=== PATIENT | female | born 1985 | race Two or more races ===

== ENCOUNTER 2017-10-10 09:03 | Emergency (ER) | payer OTHER ==
[2017-10-10 09:11] VITALS: BMI 25.8
[2017-10-10] MEDS ORDERED: METOCLOPRAMIDE HCL INJECTION 10 MG/2 ML VIAL IVPB ONE (09:17)
[2017-10-10] MEDS ORDERED: ACETAMINOPHEN 1000 MG/100 ML VIAL (NON FORMULARY) IVPB ONE (09:17)
[2017-10-10] MEDS ORDERED: SODIUM CHLORIDE 1,000 ML IV STA (09:35)
[2017-10-10] MEDS ORDERED: METOCLOPRAMIDE HCL INJECTION 10 MG/2 ML VIAL ONE (09:45)
--- NOTE | 2017-10-10 10:07 | PDOC ---
History of Present Illness - General Chief Complaint: Headache Stated Complaint: HEADACHE/20 WKS Time Seen by Provider: 10/10/17 09:16 History Source: Patient Exam Limitations: No Limitations - History of Present Illness Initial Comments: 10/10/17 10:07 32-year-old female presents to the ED with complaints of frontal headache and retro-orbital pressure since yesterday unrelieved with Tylenol 650 with last dose taken at 11 PM yesterday evening. Patient states has had headaches like this in the past with no change in symptoms but since she is currently 24 weeks she no she only can take Tylenol with moment does not relieve her headaches like Motrin does. Patient states also complaining of mild nausea without vomiting. Patient denies abdominal pain, visual changes, headache, vaginal discharge, vaginal bleeding, urinary complaints, fever, chills, dizziness, or weakness. Patient states is going well with no concerns for high-risk . Timing/Duration: reports: 24 hours Severity: Yes: moderate Associated Symptoms: reports: nausea/vomiting. denies: vision changes, weakness Past History - Travel Traveled outside of the country in the last 30 days: No - Past Medical History Allergies/Adverse Reactions: Allergies Allergy/AdvReac Type Severity Reaction Status Date / Time No Known Drug Allergies Allergy Verified 01/07/16 15:15 Penicillins Allergy Verified 10/10/17 09:07 SPICY FOOD Allergy Intermediate Rash Uncoded 01/07/16 15:16 Home Medications: Ambulatory Orders NK [No Known Home Medication] 10/10/17 Anemia: No Asthma: No Cancer: No Cardiac Disorders: No CVA: No COPD: No CHF: No Dementia: No Diabetes: No GI Disorders: No Disorders: No HTN: No Hypercholesterolemia: No Liver Disease: No Seizures: No Thyroid Disease: Yes (hypothyroid on synthroid) - Reproductive History Is Patient Now?: Yes - Immunization History Immunization Up to Date: Yes - Suicide/Smoking/Psychosocial Hx Smoking History: Never smoked Have you smoked in the past 12 months: No Information on smoking cessation initiated: No Hx Alcohol Use: No Drug/Substance Use Hx: No Substance Use Type: None Hx Substance Use Treatment: No Review of Systems - Review of Systems Able to Perform ROS?: Yes Constitutional: No: Symptoms Reported HEENTM: No: Symptoms Reported Respiratory: No: Symptoms reported Cardiac (ROS): No: Symptoms Reported ABD/GI: Yes: Nausea : No: Symptoms Reported Musculoskeletal: No: Symptoms Reported Integumentary: No: Symptoms Reported Neurological: Yes: Headache. No: Weakness, Dizziness *Physical Exam - Vital Signs Last Vital Signs Temp Pulse Resp BP Pulse Ox 98.3 F 80 17 104/55 99 10/10/17 09:07 10/10/17 09:07 10/10/17 09:07 10/10/17 09:07 10/10/17 09:07 - Physical Exam General Appearance: Yes: Nourished, Appropriately Dressed. No: Apparent Distress HEENT: positive: EOMI, MARILYN, TMs Normal, Pharynx Normal. negative: Pale Conjunctivae Neck: positive: Normal Thyroid, Supple Respiratory/Chest: positive: Lungs Clear, Normal Breath Sounds. negative: Respiratory Distress, Accessory Muscle Use Cardiovascular: positive: Regular Rhythm, Regular Rate. negative: Murmur Gastrointestinal/Abdominal: positive: Other (gravid abdomen) Extremity: positive: Normal Capillary Refill. negative: Pedal Edema Integumentary: positive: Normal Color, Warm, Moist Neurologic: positive: Motor Strength 5/5 (ambulatory) ED Treatment Course - LABORATORY CBC & Chemistry Diagram: 10/10/17 09:25 10/10/17 09:25 Medical Decision Making - Medical Decision Making 10/10/17 10:10 32-year-old female 24 weeks with frontal/retro-orbital pressure since yesterday associated with nausea. Patient with history of headaches normally relieved with Motrin but unable to take secondary to . Patient has no other complaints at this time. Vital signs stable. Patient's COUNCILMAN is Dr. Kohler. Plan is to hydrate, check urinalysis basic labs including CBC order IV fluids, IV Reglan and IV Tylenol. 10/10/17 12:27 Laboratory Tests 10/10/17 10/10/17 10/10/17 09:25 09:25 09:25 WBC 7.4 Hgb 11.6 D Hct 35.3 D Plt Count 229 Neutrophils % 71.4 Anion Gap 5 L Creatinine 0.5 L Random Glucose 72 L Calcium 8.2 L Albumin 2.8 L Urine Ketones Negative Urine Blood 1+ H Urine Nitrite Negative Urine Urobilinogen Negative Ur Leukocyte Esterase Trace Urine RBC (Auto) <1 Patient states feeling much better and requesting to be discharged home. Patient will eat lunch secondary to glucose of 72 to alleviate hypoglycemia. Patient be discharged home with supportive care instructions. Patient states has Tylenol home. Patient recommended to rest eats small frequent meals and stay well-hydrated today. Patient has no abdominal complaints and states has felt the baby move during her ER stay. *DC/Admit/Observation/Transfer Diagnosis at time of Disposition: Head ache - Discharge Dispostion Disposition: HOME Condition at time of disposition: Improved - Referrals Referrals: Katelin Ferrell MD [Primary Care Provider] - Izaiah Kohler MD [Staff Physician] - - Patient Instructions Printed Discharge Instructions: DI for Headache Additional Instructions: Please drink plenty of fluids and stay well-hydrated. Eat small frequent meals throughout the day. May take Tylenol for discomfort. Follow-up with your MUSTANGER as previously scheduled. - Post Discharge Activity
[2017-10-10] MEDS ORDERED: ACETAMINOPHEN INJECTION 100 ML IVPB ONE (10:11)
[2017-10-10 10:27] LABS: BASO % 0.2 % (0-2.0); EOS % 2.7 % (0-4.5); HEMATOCRIT 35.3 % (32.4-45.2); HEMOGLOBIN 11.6 GM/dL (10.7-15.3); LYMPH % 16.3 % (8-40); MCHC 32.8 g/dl (32.0-36.0); MEAN CELL VOLUME 91.6 fl (80-96); MEAN PLT VOLUME 8.2 fl (7.5-11.1); MONO % 9.4 % (3.8-10.2); NEUT % 71.4 % (42.8-82.8); PLATELET COUNT 229 K/MM3 (134-434); RBC 3.85 M/mm3 (3.60-5.2); RDW 14.4 % (11.6-15.6); WHITE BLOOD COUNT 7.4 K/mm3 (4.0-10.0)
[2017-10-10 10:28] LABS: URINE APPEARANCE CLEAR; URINE BILIRUBIN NEGATIVE (NEGATIVE); URINE BLOOD 1+ (NEGATIVE); URINE COLOR LTYELLOW; URINE GLUCOSE (UA) NEGATIVE (NEGATIVE); URINE KETONE NEGATIVE (NEGATIVE); URINE LEUK ESTERASE TRACE (NEGATIVE); URINE NITRITE NEGATIVE (NEGATIVE); URINE PROTEIN NEGATIVE (NEGATIVE); URINE UROBILINOGEN NEGATIVE mg/dL (0.2-1.0)
[2017-10-10 10:34] LABS: EPI CELLS FEW /HPF (FEW); URINE BACTERIA RARE /hpf (NONE SEEN); URINE MUCUS RARE
[2017-10-10 11:31] LABS: ALBUMIN 2.8 g/dl (3.4-5.0); ANION GAP 5 (8-16); BLOOD UREA NITROGEN 7 mg/dL (7-18); CALCIUM 8.2 mg/dL (8.5-10.1); CHLORIDE 105 mmol/L (98-107); CO2 26 mmol/L (21-32); GLUCOSE,RANDOM 72 mg/dL (74-106); POTASSIUM 3.8 mmol/L (3.5-5.1); SODIUM 136 mmol/L (136-145)
[2017-10-10 11:39] LABS: ALK PHOS 73 U/L (45-117); BILIRUBIN,TOTAL 0.2 mg/dL (0.2-1.0); CREATININE 0.5 mg/dL (0.55-1.02); SGOT/AST 26 U/L (15-37); SGPT/ALT 29 U/L (12-78); TOT PROT 7.4 g/dl (6.4-8.2)
[2017-10-10 12:28] VITALS: BP 103/60; PULSE 85; TEMP 98.1
== END 2017-10-10 13:19 | disposition home or self-care (01) ==
LOC: JER 09:03
PROC: 3E0337Z Introduction of Electrolytic and Water Balance Substance into Peripheral Vein, Percutaneous Approach (ICD-10-PCS; principal; 2017-10-10)
DX: O26.892 Other specified pregnancy related conditions, second trimester (principal); R51 Headache; Z3A.24 24 weeks gestation of pregnancy
CPT/HCPCS: 36415; 80053; 81003; 81015; 85025; 87077; 87086; 96360; 99283-25

== ENCOUNTER 2018-01-06 06:10 | Inpatient (IN) | payer OTHER ==
[2018-01-06] MEDS ORDERED: ELECTROLYTE-148 SOLN 500 ML IV ONE (06:36)
[2018-01-06] MEDS ORDERED: CITRIC ACID/SODIUM CITRATE 30 ML UNIT-DOSE CUP PO ONE (06:36)
[2018-01-06 07:04] VITALS: BMI 29.2
[2018-01-06] MEDS ORDERED: ELECTROLYTE-148 SOLN 1,000 ML IV SCH (07:05)
--- NOTE | 2018-01-06 07:22 | HP ---
Past Medical History - Primary Care Physician PCP:: Erika Pearce - Admission Chief Complaint: 32 yrs 01, 40 weeks gestation with previous c/section, not in labor, requests for repeat c/sctionn History of Present Illness: care at [address] [place] [address] . 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 Weeks Gestation by Dates: 38.1 ...EDC by Dates: 01/19/18 ...EDC by Sono: 01/06/18 (40 weeks ) Heme/Onc: Yes: Anemia Infectious Disease: No: AIDS, HIV, STD's Psych: No: Addictions, Anxiety, Bipolar, Depression, Panic Endocrine: Yes: Hypothyroidism (Rx Po Levothyroxine 150 mcg daily) - Past Surgical History Past Surgical History: Yes: (Lftc/s 11/08/15 at [facility]) Hx Myomectomy: No Hx Transabdominal Cerclage: No - Smoking History Smoking history: Unknown if ever smoked Have you smoked in the past 12 months: No - Alcohol/Substance Use Hx Alcohol Use: No History of Substance Use: reports: None Home Medications - Allergies Allergies/Adverse Reactions: Allergies Allergy/AdvReac Type Severity Reaction Status Date / Time No Known Drug Allergies Allergy Verified 01/07/16 15:15 Penicillins Allergy Verified 10/10/17 09:07 SPICY FOOD Allergy Intermediate Rash Uncoded 01/07/16 15:16 - Home Medications Home Medications: Ambulatory Orders NK [No Known Home Medication] 10/10/17 Physical Exam - Maternity Vital Signs: Vital Signs Temperature 97.9 F 01/06/18 06:10 Pulse Rate 80 01/06/18 06:10 Respiratory Rate 20 01/06/18 06:10 Blood Pressure 113/63 01/06/18 06:10 O2 Sat by Pulse Oximetry (%) Constitutional: Yes: Well Nourished Eyes: Yes: WNL HENT: Yes: WNL Neck: Yes: WNL Cardiovascular: Yes: WNL Lungs: Clear to auscultation Breast(s): Yes: WNL - Abdominal Exam/OB Fundal Height: 40 Number of Fetuses: Single Presentation: Vertex Contractions: Yes Regularity: Irregular Intensity: Unaware Monitor Mode: External Heart Rate (range): 130 Heart Rate Location: Q Category: I Accelerations: Uniform Decelerations: None - Vaginal Exam/OB Vaginal Bleediing: No Dilatation (cm): close Effacement (%): unefface Amniotic Membrane Status: Intact Presentation: Vertex/Position Station: -3 - Physical Exam Musculoskeletal: Yes: WNL Extremities: Yes: WNL. No: Calf Tenderness Edema: Yes Edema: LLE: Trace, RLE: Trace Integumentary: Yes: Incision (pfannensteil scar keloid) Deep Tendon Reflex Grade: Normal +2 ...Motor Strength: WNL Psychiatric: Yes: WNL - Labs Lab Results: Laboratory Tests 11/07/15 01/05/18 01/05/18 21:15 15:55 15:55 WBC 5.7 RBC 4.11 Hgb 12.7 Hct 37.5 MCV 91.2 MCH 30.8 MCHC 33.8 Plt Count 219 Neutrophils % 77.0 Lymphocytes % 14.3 Monocytes % 7.7 Eosinophils % 0.9 Basophils % 0.1 PT with INR 10.60 INR 0.94 PTT (Actin FS) 30.2 Sodium Potassium Chloride Carbon Dioxide BUN Creatinine Creat Clearance w eGFR Random Glucose Calcium AST ALT Total Protein 01/05/18 15:55 WBC RBC Hgb Hct MCV MCH MCHC Plt Count Neutrophils % Lymphocytes % Monocytes % Eosinophils % Basophils % PT with INR INR PTT (Actin FS) Sodium 137 Potassium 3.9 Chloride 106 Carbon Dioxide 24 BUN 7 Creatinine 0.6 Creat Clearance w eGFR > 60 Random Glucose 114 H Calcium 8.5 AST 25 ALT 24 Total Protein 7.1 Hemorrhage Risk Assessment - Risk Factors Medium Risk Factors: Yes: Prior , uterine surgery,or multiple laparotomies Risk Score: 1 Risk Level: Medium Risk Problem List - Problems (1) 40 weeks gestation of Code(s): Z3A.40 - 40 WEEKS GESTATION OF (2) Previous section Code(s): Z98.891 - HISTORY OF UTERINE SCAR FROM PREVIOUS SURGERY (3) Hypothyroid Code(s): E03.9 - HYPOTHYROIDISM, UNSPECIFIED Qualifiers: Hypothyroidism type: unspecified Qualified Code(s): E03.9 - Hypothyroidism , unspecified Assessment/Plan 32 yrs , previous c/section, 40 weeks , not in labor Plan : repeat LFtC/section
[2018-01-06] MEDS ORDERED: ACETAMINOPHEN 325 MG TABLET (FP) PO PRN (07:42)
[2018-01-06] MEDS ORDERED: morphine SULFATE/Preservative Free 0.5 MG/ML (1cc Syringe) ONE (07:52)
[2018-01-06] MEDS ORDERED: BUPIVACAINE 0.75% IN DEXTROSE/PF 2ML AMPULE NR ONE ×3 (07:54)
[2018-01-06] MEDS ORDERED: CLINDAMYCIN PHOSPHATE 600 MG/4 ML VIAL ONE (08:08)
[2018-01-06] MEDS ORDERED: KETOROLAC TROMETHAMINE 30 MG/1 ML VIAL ONE (08:14)
[2018-01-06] MEDS ORDERED: DEXAMETHASONE SOD PHOSPHATE 4 MG/1 ML VIAL ONE (08:14)
[2018-01-06] MEDS ORDERED: OXYTOCIN 10 UNITS/ML VIAL ONE (08:15)
[2018-01-06] MEDS ORDERED: SODIUM CHLORIDE 0.9% P/F 10 ML VIAL IJ ONE (08:17)
[2018-01-06] MEDS ORDERED: ceFAZolin SODIUM 1 GM VIAL ONE (08:17)
[2018-01-06] MEDS: OXYTOCIN 20 UNITS in 0.9% NS 20 UNIT/1,000 ML INFUS.BAG IV SCH ×2 (08:25→14:28)
[2018-01-06] MEDS ORDERED: METHYLERGONOVINE MALEATE 0.2 MG/1 ML AMP IM PRN (09:03)
[2018-01-06] MEDS ORDERED: IBUPROFEN 800 MG/8 ML IJ IVPB PRN (09:03)
--- NOTE | 2018-01-06 09:19 | PN ---
Delivery - Delivery Section: Repeat, Low Flap Transverse (40 weeks, previous c/section) Type of Anesthesia: Spinal EBL (cc): 700 (tena output 200ml , avril color ) Delivery, Single - Stages of Labor Date of Delivery: 01/06/18 Time of Delivery: 08:20 Date Placenta Delivered: 01/06/18 Time Placenta Delivered: 08:22 Placenta: Yes: Manual Removal, Uterine Exploration - Condition of Gender: Female Weight: 7 lb 14 oz Position: Right, OT Total Hours ROM (Hrs/Mins): 2 min - 1 Minute Total Score: 9 5 Minutes Total Score: 9 - [place] Feeding Plan Initial Plan: Elected not to breastfeed exclusively throughout hospitalization Remarks - Remarks Remarks: 32 yrs , previous c/section not in labor , pnc at , [facility] gbs neg pap lsil hypothyroid , rx po levothyroxine 150 mcg po daily intraop course uneventful Allergy PCN, Rx intraop IvClindamycin 600mg
--- NOTE | 2018-01-06 09:25 | OP ---
Operative Note - Note: Operative Date: 01/06/18 Pre-Operative Diagnosis: 40 weeks, previousc/section not in labor Operation: Repeat LFTC/section Findings: TOB 8.20 AM,Baby Girl, 9/9, Wt 7'14" Ht 19.5", ROT position Both tubes & ovaries normal Surgeon: Erika Pearce Hat Sizer: Sea Carlson Anesthesiologist/YARDAGE CALLER: Rik Mosquera Anesthesia: Spinal Specimens Removed: placenta. cord segment for blood gas. cord blood Estimated Blood Loss (mls): 700 Drains, Volume Out (mls): 200 (tena avril color ) Fluid Volume Replaced (mls): 1,500 (iv clindamycin 600 mg prior to incision) Operative Report Dictated: Yes
[2018-01-06 09:51] LABS: VENOUS PC02 61.6 mmHg (38-52); VENOUS PH 7.26 (7.32-7.42); VENOUS PO2 16.4 mmHg (28-48)
--- NOTE | 2018-01-06 09:54 | OP ---
DATE OF OPERATION: 01/06/2018 PREOPERATIVE DIAGNOSIS: A 40-week , previous section, not in labor, request for repeat section. OPERATION DONE: A repeat low flap transverse section. SURGEON: Erika Pearce MD RELEASE ENGINEER SURGEON: ANA William ANESTHESIOLOGIST: Rik Mosquera MD ANESTHESIA: Spinal. FINDINGS: This is a 32-year-old 2 para 1-0-0-1 at 40 weeks who does not want to wait longer for the trial and not in labor. Cervix was closed. PROCEDURE: Patient was taken to the operating room table. Abdomen was shaved, prepped. Rockwell catheter was placed. Spinal anesthesia was given. Patient was in supine position. Abdomen was painted and draped in the usual manner. Previous Pfannenstiel scar was excised.. Then, the incision was made around the keloid, and the keloid was excised. Then, subcutaneous tissue, anterior rectus sheath was incised transversely. Bleeding points were clamped and cauterized. The rectus muscle was from the rectus sheath. Parietal peritoneum was opened vertically. Lower flap of the peritoneum was incised transversely. Bladder was pushed down. Lower uterine segment was incised transversely. The amniotic fluid was clear. The baby was delivered at 8:20 a.m. from ROT position. was 9, 9, and the babys weight was 7 pounds 14 ounces, height is 19.5 inches. Cord was clamped, cut, and then, cord segment was sent for the cord blood gases, and the cord blood was collected for sent to the lab. Placenta was completely removed with the membranes and sent for pathology examination. The uterus was cleaned of its membranes. Then, uterine incision was closed in 2 layers. The first layer was closed with a Biosyn 0 continuous locking suture, second layer was closed with a Biosyn 0 continuous intermittently locking suture. Hemostasis was checked in the uterine incision. Both tubes and ovaries were normal. Irrigation was done. Sponge, instrument, and needle counts were correct. Then, the closure of the abdomen was done. The parietal peritoneum was closed with a Vicryl suture. Muscles were approximated with interrupted sutures with a Vicryl 0 suture. Hemostasis was checked underneath the rectus sheath flaps. Then, rectus sheath was closed with a Vicryl 0 suture. Continuous sutures were taken. Hemostasis checked in subcutaneous tissue. Then, skin was approximated with the dane, and pressure dressing was given. Blood clots were removed from the vagina. Patient was transferred to the recovery room in stable condition. Estimated blood loss was 750 mL. Urine output was 200 mL. It was avril-colored. She received IV clindamycin 600 mg prior to the incision. She is allergic to the AMOXICILLIN. Sarah [id number] MTDD
[2018-01-06 09:56] LABS: ARTERIAL BLOOD GAS BASE EXCESS -2.3 meq/l (-2-2); ARTERIAL BLOOD GAS PCO2 48.9 mmHg (35-45); ARTERIAL BLOOD GAS pH 7.31 (7.35-7.45)
[2018-01-06 10:00] LABS: ARTERIAL BLOOD GAS PO2 26.5 mmHg (80-100)
[2018-01-06 10:03] LABS: ARTERIAL BLD GAS O2 SATURATION 55.9 % (90-98.9)
[2018-01-06] MEDS: CLINDAMYCIN 600MG PREMIX IVPB 600 MG/50 ML BAG IVPB SCH ×2 (16:11→23:52)
--- NOTE | 2018-01-07 02:42 | PN ---
Post Progress Note - Subjective Subjective: 32 yo Para 2, status post repeat , seen and evaluated. Doing well. Post Day: 1 Type of Delivery: Repeat C/S Vital Signs: Vital Signs Temperature 98.3 F 01/07/18 01:45 Pulse Rate 74 01/07/18 01:45 Respiratory Rate 18 01/07/18 02:00 Blood Pressure 107/67 01/07/18 01:45 O2 Sat by Pulse Oximetry (%) 97 01/06/18 09:52 Breast Exam: Yes: Soft Uterus: Yes: Fundus Firm Incision: Yes: Dressing dry and intact Abdomen/GI: Yes: Abdomen soft Lochia: Yes: Rubra Lochia, amount: Small Extremities: Yes: Calves non-tender Activity: Other (She's lying in bed) Problem List - Problems (1) Status post repeat low transverse section Code(s): Z98.891 - HISTORY OF UTERINE SCAR FROM PREVIOUS SURGERY Assessment/Plan Status post repeat Ambulation Analgesia as needed Continue routine post op care
[2018-01-07] MEDS ORDERED: oxyCODONE HCL 5 MG TABLET PO PRN ×2 (06:00)
[2018-01-07] MEDS: LEVOTHYROXINE NA 150 MCG TABLET PO SCH (06:12)
[2018-01-07] MEDS: SIMETHICONE 80 MG TAB.CHEW (FP) PO PRN ×2 (07:58→22:12)
[2018-01-07 08:54] LABS: BASO % 0.3 % (0-2.0); EOS % 0.3 % (0-4.5); HEMATOCRIT 35.7 % (32.4-45.2); HEMOGLOBIN 12.1 GM/dL (10.7-15.3); MCH 30.8 pg (25.7-33.7); MEAN CELL VOLUME 90.5 fl (80-96); MEAN PLT VOLUME 8.6 fl (7.5-11.1); MONO % 6.8 % (3.8-10.2); NEUT % 80.6 % (42.8-82.8); PLATELET COUNT 208 K/MM3 (134-434); RBC 3.94 M/mm3 (3.60-5.2); RDW 14.3 % (11.6-15.6); WHITE BLOOD COUNT 10.1 K/mm3 (4.0-10.0)
[2018-01-07] MEDS ORDERED: BISACODYL 10 MG SUPP.RECT RC PRN (09:03)
[2018-01-07] MEDS: PRENATAL VITAMINS W/ FOLIC ACID TABLET (FP) PO SCH (09:36)
[2018-01-07] MEDS: CLINDAMYCIN 600MG PREMIX IVPB 600 MG/50 ML BAG IVPB SCH (09:36)
[2018-01-07] MEDS: ENOXAPARIN NA (PORCINE) 40 MG/0.4 ML DISP.SYRIN SQ SCH (09:37)
--- NOTE | 2018-01-07 10:13 | PN ---
Progress Note, Physician Chief Complaint: Pt. ambulating and voiding. Pain controlled, no anesthesia complaints. - Current Medication List Current Medications: Active Medications Acetaminophen (Tylenol -) 650 mg PO Q4H PRN PRN Reason: PAIN LEVEL 4 - 6 Bisacodyl (Dulcolax Suppository -) 10 mg RC PRN PRN PRN Reason: CONSTIPATION Enoxaparin Sodium (Lovenox -) 40 mg SQ DAILY [facility] Last Admin: 01/07/18 09:37 Dose: 40 mg Ferrous Sulfate (Feosol -) 325 mg PO BID [facility] Clindamycin Phosphate (Cleocin 600 Mg Premix Ivpb -) 600 mg in 50 mls @ 100 mls /hr IVPB Q8H [facility] Stop: 01/07/18 15:59 Last Admin: 01/07/18 09:36 Dose: 100 mls/hr Oxytocin/Sodium Chloride (Normal Saline+20 Units Oxytocin -) 20 unit in 1,000 mls @ 125 mls/hr IV ASDIR [facility] Last Admin: 01/06/18 14:28 Dose: 125 mls/hr Ibuprofen (Motrin -) 600 mg PO Q4H PRN PRN Reason: PAIN LEVEL 1 - 3 Ibuprofen (Caldolor Injection -) 800 mg IVPB Q8H PRN PRN Reason: PAIN LEVEL 1-5 Last Admin: 01/07/18 07:54 Dose: 800 mg Levothyroxine Sodium (Synthroid -) 150 mcg PO DAILY@0700 [facility] Last Admin: 01/07/18 06:12 Dose: 150 mcg Methylergonovine Maleate (Methergine Injection -) 0.2 mg IM Q4H PRN PRN Reason: Excessive Bleeding (L&D) Oxycodone HCl (Roxicodone -) 5 mg PO Q4H PRN PRN Reason: PAIN LEVEL 4 - 6 Oxycodone HCl (Roxicodone -) 10 mg PO Q4H PRN PRN Reason: PAIN LEVEL 7 - 10 Multivit/Folic Acid/Iron ( Vitamins (Sjr) -) 1 tab PO DAILY [facility] Last Admin: 01/07/18 09:36 Dose: 1 tab Simethicone (Mylicon -) 80 mg PO Q4H PRN PRN Reason: GAS Last Admin: 01/07/18 07:58 Dose: 80 mg - Objective Vital Signs: Vital Signs Temperature 98.0 F 05/03/18 07:54 Pulse Rate 85 01/07/18 07:54 Respiratory Rate 20 01/07/18 08:00 Blood Pressure 112/65 01/07/18 07:54 O2 Sat by Pulse Oximetry (%) 97 01/06/18 09:52 Constitutional: Yes: Well Nourished, No Distress, Calm Musculoskeletal: Yes: WNL Neurological: Yes: WNL, Alert, Oriented ...Motor Strength: WNL Labs: CBC, BMP 01/07/18 08:00 Assessment/Plan POD#1 s/p under spinal with duramorph. Doing well. D/C from anesthesia care.
[2018-01-07] MEDS: FERROUS SO4 325 MG TABLET (FP) PO SCH (22:10)
[2018-01-07] MEDS: IBUPROFEN 600 MG TABLET (FP) PO PRN (22:10)
[2018-01-07] MEDS: ACETAMINOPHEN 325 MG TABLET (FP) PO PRN (22:10)
[2018-01-08] MEDS: LEVOTHYROXINE NA 150 MCG TABLET PO SCH (06:11)
--- NOTE | 2018-01-08 09:27 | PN ---
Post Progress Note - Subjective Subjective: no complains, pain scale 3-4 voiding without difficulty Post Day: 2 Type of Delivery: Repeat C/S Vital Signs: Vital Signs Temperature 98.4 F 01/07/18 21:30 Pulse Rate 92 H 01/07/18 21:30 Respiratory Rate 19 01/07/18 21:30 Blood Pressure 107/65 01/07/18 21:30 O2 Sat by Pulse Oximetry (%) 97 01/06/18 09:52 Breast Exam: Yes: Soft, Other (BF ). No: Engorged Uterus: Yes: Fundus Firm, Fundus below umbilicus, Non-tender Incision: Yes: Anmol intact, Oozing. No: Redness Abdomen/GI: Yes: Abdomen soft, Passing flatus (bn not done ), Tolerating PO. No : Abdominal Distention Lochia: Yes: Rubra Lochia, amount: Moderate Extremities: Yes: Calves non-tender Perineum: Yes: Intact Activity: Ambulating - Labs Labs: CBC WBC 10.1 K/mm3 (4.0-10.0) H D 01/07/18 08:00 RBC 3.94 M/mm3 (3.60-5.2) 01/07/18 08:00 Hgb 12.1 GM/dL (10.7-15.3) 01/07/18 08:00 Hct 35.7 % (32.4-45.2) 01/07/18 08:00 MCV 90.5 fl (80-96) 01/07/18 08:00 MCH 30.8 pg (25.7-33.7) 01/07/18 08:00 MCHC 34.0 g/dl (32.0-36.0) 01/07/18 08:00 RDW 14.3 % (11.6-15.6) 01/07/18 08:00 Plt Count 208 K/MM3 (134-434) 01/07/18 08:00 MPV 8.6 fl (7.5-11.1) 01/07/18 08:00 Neutrophils % 80.6 % (42.8-82.8) 01/07/18 08:00 Lymphocytes % 12.0 % (8-40) 01/07/18 08:00 Monocytes % 6.8 % (3.8-10.2) 01/07/18 08:00 Eosinophils % 0.3 % (0-4.5) 01/07/18 08:00 Basophils % 0.3 % (0-2.0) 01/07/18 08:00 Problem List - Problems (1) 40 weeks gestation of Code(s): Z3A.40 - 40 WEEKS GESTATION OF (2) Previous section Code(s): Z98.891 - HISTORY OF UTERINE SCAR FROM PREVIOUS SURGERY (3) Hypothyroid Code(s): E03.9 - HYPOTHYROIDISM, UNSPECIFIED Qualifiers: Hypothyroidism type: unspecified Qualified Code(s): E03.9 - Hypothyroidism , unspecified Assessment/Plan stable plan ct po care
[2018-01-08] MEDS: FERROUS SO4 325 MG TABLET (FP) PO SCH ×2 (09:31→21:45)
[2018-01-08] MEDS: ENOXAPARIN NA (PORCINE) 40 MG/0.4 ML DISP.SYRIN SQ SCH (09:31)
[2018-01-08] MEDS: PRENATAL VITAMINS W/ FOLIC ACID TABLET (FP) PO SCH (09:40)
[2018-01-08] MEDS: SIMETHICONE 80 MG TAB.CHEW (FP) PO PRN (17:21)
[2018-01-08] MEDS: IBUPROFEN 600 MG TABLET (FP) PO PRN (17:21)
[2018-01-08] MEDS: ACETAMINOPHEN 325 MG TABLET (FP) PO PRN (17:21)
--- NOTE | 2018-01-09 02:03 | DS ---
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 Vital Signs: Vital Signs Temperature 97.7 F 01/08/18 21:44 Pulse Rate 74 01/08/18 21:44 Respiratory Rate 20 01/08/18 21:44 Blood Pressure 102/54 01/08/18 21:44 O2 Sat by Pulse Oximetry (%) 97 01/06/18 09:52 Constitutional: Yes: Well Nourished Eyes: Yes: Conjunctiva Clear HENT: Yes: Atraumatic Neck: Yes: Supple Cardiovascular: Yes: Regular Rate and Rhythm Respiratory: Yes: Regular Gastrointestinal: Yes: Normal Bowel Sounds Pelvis: Yes: WNL External Genitalia: Yes: Normal Vaginal Exam: Yes: Normal Cervix: Yes: Normal Uterus: Yes: Firm Breast(s): Yes: WNL Musculoskeletal: Yes: WNL Extremities: Yes: WNL Wound/Incision: Yes: Well Approximated Neurological: Yes: Alert, Oriented ...Motor Strength: WNL Psychiatric: Yes: Alert, Oriented Labs: CBC, BMP 01/07/18 08:00 Delivery - Delivery Section: Repeat, Low Flap Transverse (40 weeks, previous c/section) Type of Anesthesia: Spinal Episiotomy/Laceration: None EBL (cc): 700 (tena output 200ml , avirl color ) Delivery, Single - Stages of Labor Date of Delivery: 01/06/18 Time of Delivery: 08:20 Time Placenta Delivered: 08:22 Placenta: Yes: Manual Removal, Uterine Exploration - 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 Gender: Female Weight: 7 lb 14 oz Position: Right, OT Total Hours ROM (Hrs/Mins): 2 min - 1 Minute Total Score: 9 5 Minutes Total Score: 9 - [place] Feeding Plan Initial Plan: Elected not to breastfeed exclusively throughout hospitalization Discharge Summary Reason For Visit: ADMIT Current Active Problems 40 weeks gestation of (Acute) Hypothyroid (Acute) Previous section (Acute) Status post repeat low transverse section (Acute) Procedures: Principal: Repeat Low Transverse Hospital Course: Routine Post op care Condition: Stable - Instructions Diet, Activity, Other Instructions: Post Instructions DIET: Continue good diet high in protein, calcium, and iron rich foods. Drink at least eight (8) glasses of water daily in addition to other fluids. ___ Regular diet MEDICATIONS: Continue vitamins and iron as previously directed. Motrin and Tylenol may be taken for minor discomfort. ACTIVITY: Mild to moderate exercise may be started in two (2) weeks. Take frequent rest periods. Resume normal activity after six (6) week check up. WOUND CARE OF OPERATIVE SITE: Continue use of perineal bottle until vaginal discharge stops. Keep area clean. Shower daily. Keep abdominal wound dry. Report any drainage or redness to physician. Tub baths, tampons and douches are not permitted for [address] Breast feeding & or Bottle feeding BREAST CARE: (For those that are not ): If engorgement occurs: Wear tight fitting bra. Take Tylenol or Motrin for pain. Apply cold packs (ice in bags to each breast ) FAMILY PLANNING: There are many control alternatives to pursue and they should be discussed at your first office visit. You may resume sexual activity after your six (6) week check up. (Remember, breast feeding is not a contraceptive) NEXT PHYSICIAN APPOINTMENT: Be certain to call for a one (1) week appointment, unless otherwise directed. RTC Thursday for dane removal . 01/12/18 Call Clinic or got to Emergency Dept if you have any of the following: Heavy vaginal bleeding Painful urination Leg pain Unusual odor noted to vaginal bleeding High fever Red streaking noted on breast call [facility] for appointment. [phone] Referrals: Erika Pearce MD [Staff Physician] - Disposition: HOME - Home Medications Comprehensive Discharge Medication List: Ambulatory Orders Acetaminophen [Tylenol .Regular Strength -] 500 mg PO Q4H PRN #20 tablet Ibuprofen [Motrin -] 600 mg PO Q4H PRN #20 tablet 01/08/18 Levothyroxine [Synthroid -] 150 mcg PO DAILY@0700 tablet 01/08/18 Vit/Iron Fum/Folic AC [ Tablet] 1 tablet PO DAILY 01/08/18 Vitamins (Sjr) - 1 tab PO DAILY tablet 01/08/18
[2018-01-09] MEDS: LEVOTHYROXINE NA 150 MCG TABLET PO SCH (06:23)
[2018-01-09 08:37] VITALS: BP 102/44; PULSE 79; TEMP 97.2
[2018-01-09 08:37] LABS: BASO % 0.5 % (0-2.0); EOS % 2.6 % (0-4.5); HEMOGLOBIN 12.1 GM/dL (10.7-15.3); LYMPH % 15.3 % (8-40); MCH 30.5 pg (25.7-33.7); MCHC 33.6 g/dl (32.0-36.0); MEAN PLT VOLUME 8.2 fl (7.5-11.1); MONO % 6.4 % (3.8-10.2); NEUT % 75.2 % (42.8-82.8); PLATELET COUNT 252 K/MM3 (134-434); RBC 3.95 M/mm3 (3.60-5.2); RDW 14.2 % (11.6-15.6); WHITE BLOOD COUNT 7.1 K/mm3 (4.0-10.0)
[2018-01-09] MEDS: FERROUS SO4 325 MG TABLET (FP) PO SCH (09:20)
[2018-01-09] MEDS: PRENATAL VITAMINS W/ FOLIC ACID TABLET (FP) PO SCH (09:20)
[2018-01-09] MEDS: ENOXAPARIN NA (PORCINE) 40 MG/0.4 ML DISP.SYRIN SQ SCH (09:20)
--- NOTE | 2018-01-14 11:30 | PATH ---
Surgical Pathology Report Patient Name: SOCORRO GUTIERREZ Med. Rec. #: [id number] /Age/Gender: 1985 (Age: 32) / F Account: [id number] Location: [facility] OBS/[employer] IN[employer]CTOR Taken: 01/06/2018 Received: 01/07/2018 Reported: 01/14/2018 Physicians: Erika Pearce M.D. Specimen(s) Received PLACENTA Clinical History Repeat , 38 weeks' gestation Final Diagnosis PLACENTA, SECTION: 507 g THIRD TRIMESTER PLACENTA WITH TRIVASCULAR UMBILICAL CORD AND UNREMARKABLE PLACENTAL MEMBRANES. Electronically Signed Colette Toussaint M.D. Gross Description The specimen is received fresh labeled placenta and is a 507 gram, 18.0 x 17.5 x 2.8 cm. placenta with attached membranes and umbilical cord. The attached membranes are sharpe, translucent with focal opacities and insert marginally. The umbilical cord measures 21 cm. in length and averages 1.1 cm. in diameter. The cord inserts eccentrically, 6 cm. to the nearest margin. No true knots or strictures are identified. Cut surface of the umbilical cord reveals 3 vessels. The surface is hart-blue with minimal fibrin deposition and appropriate caliber vessels. The maternal surface is red-brown with focal defects. Sectioning reveals red-brown, spongy parenchyma. No lesions are identified. Scleroscope Tester sections are submitted in three cassettes as follows: 1- membrane rolls and umbilical cord; 2-3- full thickness sections of placenta. 01/12/2018 saudi01/12/2018
== END 2018-01-09 12:20 | disposition home or self-care (01) | DRG 540 ==
LOC: JLDR 06:10 → J3W 10:16
PROVIDERS: ADMIT Obstetrics & Gynecology; ATTEND Obstetrics & Gynecology
PROC: 10D00Z1 Extraction of Products of Conception, Low, Open Approach (ICD-10-PCS; principal; 2018-01-06)
DX: O34.211 Maternal care for low transverse scar from previous cesarean delivery (principal); N85.8 Other specified noninflammatory disorders of uterus; O99.284 Endocrine, nutritional and metabolic diseases complicating childbirth; E03.9 Hypothyroidism, unspecified; Z3A.40 40 weeks gestation of pregnancy; Z37.0 Single live birth
CPT/HCPCS: 36415; 36600; 82803; 85025; 88307-TC; 94010

== ENCOUNTER 2021-12-23 22:57 | Emergency (ER) | payer OTHER ==
[2021-12-23 23:50] VITALS: BP 127/85; PULSE 70; TEMP 98.5; BMI 25.3
[2021-12-24] MEDS ORDERED: FLUORESCEIN NA 1 EA STRIP ONE (00:44)
[2021-12-24] MEDS ORDERED: DIPHTH,PERTUSS(ACELL),TET 0.5 ML DISP.SYRIN IM ONE ×2 (01:06→01:10)
[2021-12-24] MEDS ORDERED: FLUORESCEIN NA 1 EA STRIP OU ONE (01:06)
== END 2021-12-24 01:30 | disposition home or self-care (01) ==
LOC: JER 22:57
PROC: 3E0234Z Introduction of Serum, Toxoid and Vaccine into Muscle, Percutaneous Approach (ICD-10-PCS; principal; 2021-12-23)
DX: T20.00XA Burn of unspecified degree of head, face, and neck, unspecified site, initial encounter (principal); X10.1XXA Contact with hot food, initial encounter
CPT/HCPCS: 90471; 90715; 99283-25